=== PATIENT | female | born 1960 | race Caucasian/White ===

== ENCOUNTER 2018-12-04 12:31 | Day surgery (SDC) | payer OTHER ==
[~2018-12-04] VITALS: Ht 170.2 cm; Wt 69.9 kg
[~2018-12-04 12:31] MED LIST: 3N1 COMMODE MC; CALC-337 PO; CARI350T PO; CETI10CA PO; CLON-412 PO; CPM MC; FLUO10TA PO; GABA300C16 PO; IRON PO; METH750T93 PO; OMEP20CA16 PO; TRAM50TA2 PO; WALK1EAC23 MC
[2018-12-04 12:57] VITALS: Ht 170.2 cm; Wt 69.9 kg
[2018-12-04 13:00] VITALS: BP 155/81; PULSE 68; RESP 18
--- NOTE | 2018-12-04 13:11 | PREAC ---
Date/Time of Note Date/Time of Note DATE: 12/04/18 TIME: 13:10 Anesthesia Eval and Record Evaluation Time Pre-Procedure Interview DATE: 12/04/18 TIME: 13:10 Age 58 Sex female NPO: 8 hrs Preoperative diagnosis vomiting, diarrhea Planned procedure EGD, colonoscopy Past Medical History Past Medical History: Includes Neuro: Other (ADHD, chronic pain) Musculoskeletal: Osteoarthritis GI: Other (fatty liver ) Surgery & Anesthesia Issues No known issue Meds Anticoagulation: No Beta Edvin within 24 hr: No Reason Beta Edvin not given: Pt. not on B-Edvin Active Scripts Front Wheel Walker* (Front Wheel Walker*) 1 Each Dme, 1 EACH [facility] DIRECTED, #1 DME 0 Refills Prov:FANTA ZAMORA 01/20/16 CPM: Continuous Passive Motion* (CPM*) 1 Each Dme, 1 EACH [facility] DIRECTED, #1 DME 0 Refills Prov:FANTA ZAMORA 01/20/16 3 N 1 Commode* (3 N 1 Commode*) 1 Each Dme, 1 EACH [facility] DIRECTED, #1 DME 0 Refills Prov:FANTA ZAMORA 01/20/16 Tramadol HCl (Tramadol HCl) 50 Mg Tablet, 50 MG PO Q6 for 14 Days, #60 TAB Prov:FANTA ZAMORA 01/20/16 Reported Medications Fluoxetine Hcl* (Prozac*) 10 Mg Tablet, 10 MG PO DAILY, TAB 01/20/16 Omeprazole* (Omeprazole*) 20 Mg Capsule.dr, 20 MG PO BID, #60 CAP 01/20/16 Methocarbamol* (Robaxin*) 750 Mg Tablet, 750 MG PO QID, TAB 01/20/16 Gabapentin* (Gabapentin*) 300 Mg Capsule, 300 MG PO TID, #90 CAP 01/20/16 Calcium Carbonate-Vitamin D3 (Calcium 250 + D Tablet) 1 Tab Tablet, 1 TAB PO DAILY 02/12/14 Clonazepam* (Klonopin*) 1 Mg Tablet, 1 MG PO BID, TAB 02/12/14 Carisoprodol* (Soma*) 350 Mg Tablet, 350 MG PO TID PRN for MUSCLE SPASMS, TAB 02/12/14 Cetirizine Hcl* (Zyrtec*) 10 Mg Capsule, 10 MG PO PRN 09/03/12 [Iron] No Conflict Check, PO DAILY 07/18/12 Meds reviewed: Yes Allergies Coded Allergies: No Known Drug Allergy (Verified Allergy, Unknown, 04/14/16) Allergies Reviewed: Yes Labs/Studies Labs Reviewed: Reviewed by anesthesiologist test: N/A Pre-procedure Exam Airway: Adequate mouth opening, Adequate thyromental dist Mallampati: Mallampati II Teeth: Normal Lung: Normal Heart: Normal ASA Physical Status ASA physical status: 2 Emergency: None Planned Anesthetic General/MAC: Mask Planned Pain Management Parenteral pain med Pre-operative Attestations Prior to commencing anesthesia and surgery, the patient was re-evaluated, there was verification of: *The patient's identity *The results of appropriate recent lab work and preoperative vital signs *The above evaluation not changing prior to induction *Anesthetic plan, risk benefits, alternative and complications discussed with patient/family; questions answered; patient/family understands, accepts and wishes to proceed. LATRELL BATES MD Dec 04, 2018 13:11
[2018-12-04] MEDS ORDERED: LIDOCAINE 2% (SDV) 5 ML INJ ONE (13:12)
[2018-12-04] MEDS ORDERED: PROPOFOL 40 ML ONE (13:12)
[2018-12-04] MEDS ORDERED: MIDAZOLAM 1 MG/ML 2 ML INJ ONE (13:12)
[2018-12-04] MEDS ORDERED: ONDANSETRON 4 MG INJ IV PRN (13:30)
[2018-12-04] MEDS ORDERED: PROPOFOL 20 ML ONE (13:44)
[2018-12-04 13:52] VITALS: BP 113/63; PULSE 70; RESP 20
--- NOTE | 2018-12-04 13:54 | PAC ---
Date/Time of Note Date/Time of Note DATE: 12/04/18 TIME: 13:54 Post-Anesthesia Notes Post-Anesthesia Note Last documented vital signs Vital Signs Date Temp Pulse Resp B/P (MAP) Pulse Ox O2 O2 Flow FiO2 Time Delivery Rate 12/04/18 97.7 68 18 155/81 99 Room Air 13:00 (105) Activity: WNL Respiratory function: WNL Cardiovascular function: WNL Mental status: Baseline Pain reasonably controlled: Yes Hydration appropriate: Yes Nausea/Vomiting absent: Yes Comments Bp: 113/63 HR: 84 RR: 14 T: 98 SaO2: 99% LATRELL BATES MD Dec 04, 2018 13:54
[2018-12-04 13:57] VITALS: BP 128/58; PULSE 72; RESP 19
[2018-12-04 14:02] VITALS: BP 124/68; PULSE 82; RESP 18
== END 2018-12-04 17:00 | disposition home or self-care (01) ==
LOC: GIL 12:31
PROVIDERS: ATTEND Internal Medicine Gastroenterology
DX: Z12.11 Encounter for screening for malignant neoplasm of colon (principal); K64.8 Other hemorrhoids; K29.50 Unspecified chronic gastritis without bleeding
CPT/HCPCS: 43239; 45378; 88305; 88312; J2250; Z7610